=== PATIENT | male | born 1975 | race Caucasian/White ===

== ENCOUNTER → 2018-03-30 11:01 | Outpatient (CLI) | payer OTHER, SELFPAY | PROVIDERS: Family Provider Internal Medicine; PCP Internal Medicine; Visit Provider Emergency Medicine | DX: S46.211A Strain of muscle, fascia and tendon of other parts of biceps, right arm, initial encounter (principal); X58.XXXA Exposure to other specified factors, initial encounter; Y93.9 Activity, unspecified; Y92.9 Unspecified place or not applicable; Y99.9 Unspecified external cause status | CPT/HCPCS: 73218 ==

== ENCOUNTER 2021-07-26 03:56 | Emergency (ER) | payer OTHER, SELFPAY ==
[2021-07-26 03:56] VITALS: BP 121/83; PULSE 110; RESP 18; TEMP 36.1; O2SAT 94; BMI 31.1
--- NOTE | 2021-07-26 05:18 | CT_ITS ---
HISTORY: Pain TECHNIQUE: Multiple axial images were obtained of the abdomen and pelvis without oral or IV contrast. Coronal and sagittal reformats obtained. A radiation dose optimization technique was used for this scan. COMPARISON: January 18, 2016 FINDINGS: # of images incl. paperwork: 485 LUNG BASES: Patchy bilateral basilar peripheral groundglass airspace opacities. LIVER T BILIARY TRACT: Unremarkable gallbladder. Mild hepatic steatosis. ADRENAL GLANDS: Unremarkable. SPLEEN: Unremarkable. PANCREAS: Unremarkable. KIDNEYS/URETERS/BLADDER: No nephrolithiasis, hydronephrosis or perinephric inflammation. Unremarkable ureters and bladder. LYMPH NODES: Subcentimeter nonspecific right lower quadrant lymph nodes are present, decreased from January 18, 2016. STOMACH, SMALL AND LARGE BOWEL: No acute gastric finding. No small bowel obstruction or gross wall thickening. Appendix is not seen. No right lower quadrant inflammatory change to suggest appendicitis. No acute colonic finding. Scattered colonic diverticulosis without evidence of diverticulitis. ASCITES/FREE AIR: No free fluid or free air. AORTA: Unremarkable. PELVIS: Unremarkable. MUSCULOSKELETAL: No acute osseous finding. Right ischial chronic unchanged sclerotic bone island CT/Abdomen/Pelvis without Cont IMPRESSION: Bilateral basilar patchy peripheral groundglass airspace disease is nonspecific but concerning for atypical viral pneumonia in the appropriate setting. Mild hepatic steatosis. Colonic diverticulosis without evidence of diverticulitis. Individualized dose optimization techniques were used for this CT. at 0604 Reported and signed by: Hakeem Boo MD Electronically Signed: Hakeem Boo MD at 6:03 EST Tel , Service support ,
[2021-07-26 05:27] LABS: Absolute Lymphocyte Count 1.16 X10^3/uL (0.83-4.51); Absolute Neutrophil Count 4.6 X10^3/uL (2.0-7.7); Basophil# 0.02 X10^3/uL; Basophil% 0.3 % (0-1); Eosinophil# 0.01 X10^3/uL; Eosinophils% 0.2 % (0-5); Hematocrit 49.8 % (40-54); Hemoglobin 17.1 g/dL (13.0-16.5); Lymphocyte # 1.16 X10^3/ul (0.83-4.51); Lymphocyte % 18.2 % (19-41); Mean Corp Hgb Conc 34.3 g/dL (32-36); Mean Corpuscular Hgb 29.5 pg (27.0-32.0); Mean Platelet Vol. 9.7 fl (6.2-12.0); Monocyte# 0.57 X10^3/uL; Monocyte% 8.9 % (0-10); NRBC Flagged by Analyzer 0 % (0-5); Neutrophil # 4.56 X10^3/uL (2.7-7.7); Neutrophil % 71.5 % (47-70); Platelet Count 277 K/mm3 (150-450); RBC Distribution Width CV 12.6 % (11.6-14.6); RBC Distribution Width SD 39.8 fl (35.1-43.9); Red Blood Count 5.79 M/mm3 (4.6-6.2); White Blood Count 6.4 K/mm3 (4.4-11.0)
[2021-07-26] MEDS: 0.9% Normal Saline 1,000 ML 1000 ML IV (05:29)
[2021-07-26] MEDS: Ondansetron 4 MG/2 ML Vial IV (05:29)
[2021-07-26 05:43] LABS: AST(SGOT) 29 U/L (15-37); Alanine Aminotransfer ALT/SGPT 46 U/L (16-61); Albumin, Serum 3.7 g/dL (3.2-5.0); Alkaline Phosphatase 74 U/L (45-117); Anion Gap 9 (5-15); BUN 9 mg/dL (7-18); BUN/Creat Ratio 7.1 RATIO (10-20); Calcium,Total 8.9 mg/dL (8.5-10.1); Chloride 104 mmol/L (98-107); Creatinine, Serum 1.27 mg/dL (0.70-1.30); EST Glomerular Filtration Rate 64 mL/min (>60); Est Glom Filt Rate - Afr Amer 78 mL/min (>60); Estimated Creatinine Clearance 68.82 ml/min; Globulin 3.7 g/dL (2.2-4.2); Glucose 141 mg/dL (74-106); Lipase 63 U/L (73-393); Potassium 3.5 mmol/L (3.5-5.1); Protein, Total 7.4 g/dL (6.4-8.2); Sodium Level 138 mmol/L (136-145)
--- NOTE | 2021-07-26 06:17 | ED.VIS.GI ---
HPI HPI - GI History of Present Illness Chief Complaint: Abd Pain Informant: patient Abdominal Pain/Flank Pain Onset: Hours (8) Context: Gradual Onset Timing: Continuous Quality: Aching and Sharp Location: Epigastric, RUQ and LUQ Worsened by: Food Relieved by: Nothing Nausea/Vomiting/Emesis GI Symptom: Positive for Nausea and Vomiting Quality: Negative for Coffee ground and Hematemesis Diarrhea/Melena/Hematochezia GI Symptom: Positive for Diarrhea; Negative for Melena and Hematochezia Associated Symptoms Associated Symptoms: Negative for Dysuria, Frequency and Hematuria Narrative Narrative: Patient presents with abdominal pain that began earlier today. Patient states his pain is sharp and aching. Patient states it is over his upper abdomen. Patient states it is worse after eating or drinking anything. Patient states he has been having some nausea and vomiting every time he tries to eat or drink anything. Patient denies any hematemesis or coffee-ground emesis. Patient admits to some loose diarrhea. Patient denies any melena or hematochezia. Patient denies any dysuria, hematuria, or frequency. Patient states he tested positive for COVID-19 4 days ago. Patient states his symptoms actually started 8 days ago. PFSH PFSH Medical History no medical history no medical history Home Medications oxycodone-acetaminophen 1 - 2 tab PO Q4H PRN PRN #30 tab 01/19/16 [Rx Last Taken Unknown] ondansetron 4 mg PO Q8H PRN PRN #10 tab 07/26/21 [Rx Last Taken Unknown] Allergy/AdvReac Type Severity Reaction Status Date / Time No Known Allergies Allergy Verified 07/26/21 04:00 Surgical History History of appendectomy Social History Smoking Status: Never smoker ROS ROS ED Constitutional Constitutional ED: Reports fever(s) and subjective; Denies chills Eyes Eyes: Denies blurry vision or change in vision ENT ENT ED: Denies rhinorrhea or sore throat Cardiovascular Cardiovascular: Denies chest pain or palpitations Respiratory/Chest Respiratory/Chest: Reports cough; Denies dyspnea Gastrointestinal Gastrointestinal: Denies nausea or vomiting Genitourinary Genitourinary ED: Denies dysuria or hematuria Musculoskeletal Musculoskeletal: Reports back pain; Denies neck pain Integumentary Denies abscess or rash Neurologic Neurologic: Reports headache(s); Denies weakness Allergic/Immunologic Allergic/Immunologic ED: Denies mouth swelling or urticaria EXAM Physical Exam Const Vital Signs: 07/26/21 03:56 Temperature 96.9 F L Temperature Source Temporal Pulse Rate 110 H Respiratory Rate 18 Blood Pressure 121/83 H Blood Pressure Mean 95 Pulse Ox 94 Oxygen Delivery Method Room Air Positive well nourished and well developed General Appearance ED: well developed HEENT Reports moist mucous membranes Neck supple and no JVD Resp normal respiratory effort and clear to auscultation bilaterally Cardio regular rate, regular rhythm and no murmurs GI normal to inspection, nondistended, normoactive bowel sounds and non-distended Auscultation: normoactive bowel sounds Palpation: soft and tender epigastric, LUQ and RUQ; Negative for guarding or rebound tenderness present Extremity normal to inspection General Extremety ED: Negative for edema or tenderness General Extremity: Negative for edema Neuro oriented x3, CN's II-XII intact bilaterally and no sensory deficits noted Sensorium / Orientation: alert Motor Exam: strength 5/5 throughout Psych mental status grossly normal Skin no rashes or lesions noted MDM MDM MDM Narrative Medical decision making narrative: Patient was given IV fluids here. Patient was given a dose of Zofran here. CBC was within normal limits. Comprehensive metabolic profile was obtained and was essentially within normal limits. CT scan of the abdomen and pelvis was obtained. There is bilateral basilar patchy groundglass infiltrates. There is diverticulosis but no diverticulitis. This was interpreted by the radiologist and reviewed by myself. Patient was advised of his findings. Patient was instructed to start with small amounts of liquids frequently. Patient was instructed to advance his diet as tolerated. Patient was instructed to follow-up with his primary care physician in 3 to 5 days. Patient understood and was agreeable with the plan. All questions were answered. Lab Data Labs: Laboratory Results - last 24 hr 07/26/21 07/26/21 04:10 04:40 WBC 6.4 RBC 5.79 Hgb 17.1 H Hct 49.8 MCV 86.0 MCH 29.5 MCHC 34.3 RDW Std Deviation 39.8 RDW Coeff of Sandro 12.6 Plt Count 277 MPV 9.7 Immature Gran % (Auto) 0.900 Neut % (Auto) 71.5 H Lymph % (Auto) 18.2 L [place] % (Auto) 8.9 Eos % (Auto) 0.2 Baso % (Auto) 0.3 Absolute Neuts (auto) 4.6 Absolute Lymphs (auto) 1.16 Nucleated RBC % 0 Sodium 138 Potassium 3.5 Chloride 104 Carbon Dioxide 25.0 Anion Gap 9 BUN 9 Creatinine 1.27 Estim Creat Clear Calc 68.82 Est GFR (MDRD) Af Amer 78 Est GFR (MDRD) Non-Af 64 BUN/Creatinine Ratio 7.1 L Glucose 141 H Calcium 8.9 Total Bilirubin 0.60 AST 29 ALT 46 Alkaline Phosphatase 74 Total Protein 7.4 Albumin 3.7 Globulin 3.7 Albumin/Globulin Ratio 1.0 Lipase 63 L Radiography Diagnostic Testing: Clinical Impression(s) from Imaging Studies Abdomen/Pelvis CT 07/26/21 05:18 IMPRESSION: Bilateral basilar patchy peripheral groundglass airspace disease is nonspecific but concerning for atypical viral pneumonia in the appropriate setting. Mild hepatic steatosis. Colonic diverticulosis without evidence of diverticulitis. Individualized dose optimization techniques were used for this CT. at 0604 Reported and signed by: Hakeem Boo MD Electronically Signed: Hakeem Boo MD at 6:03 EST Tel , Service support , Discharge Plan Triage Chief Complaint: Abd Pain ED Provider: Clay Ambrocio Dx/Rx/DC Orders Clinical Impression: Nausea and vomiting, Pneumonia due to COVID-19 virus Instructions: ED Vomiting (Adult) Prescriptions: New ondansetron [ondansetron] 4 MG tablet 4 mg PO Q8H PRN PRN (Reason: Nausea) Qty: 10 RF: 0 No Action oxycodone-acetaminophen 1 TABLET tablet 1 - 2 tab PO Q4H PRN PRN (Reason: Pain) Qty: 30 RF: 0 Primary Care Provider: Juma Hutchinson Referrals: Juma Hutchinson MD [Primary Care Provider] - 3-5 Days Disposition Disposition: Home, Self Care
[2021-07-26 06:35] VITALS: PULSE 88; RESP 18; O2SAT 98
== END 2021-07-26 06:36 | disposition home or self-care (01) ==
PROVIDERS: Emergency Provider Emergency Medicine; PCP Family Medicine
DX: U07.1 COVID-19 (principal); J12.82 Pneumonia due to coronavirus disease 2019; K57.30 Diverticulosis of large intestine without perforation or abscess without bleeding; M54.9 Dorsalgia, unspecified
CPT/HCPCS: 74176; 80053; 83690; 85025; 96361; 96374; 99283; J7030; A4216; J2405